=== PATIENT | female | born 1970 | race African-American/Black ===

== ENCOUNTER 2023-04-05 06:38 | Outpatient (CLI) | payer OTHER, SELFPAY ==
[2023-04-05 08:16] LABS: Cortisol Baseline 9.93 ug/dL
== END 2023-04-05 06:39 | disposition home or self-care (01) ==
LOC: ANHOUTPT 06:41
PROVIDERS: Visit Provider Internal Medicine
DX: E27.40 Unspecified adrenocortical insufficiency (principal)
CPT/HCPCS: 36415; 82533; 96372; J0834